=== PATIENT | male | born 1995 | race Caucasian/White ===

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

== ENCOUNTER → 2017-06-27 14:24 | Emergency (ER) | payer SELFPAY ==
[~2017-06-27 14:24] MED LIST: PPD test dose* 5 TU/0.1 ML TEST (*USE PPD ORDER SET*) ONE
== END | disposition home or self-care (01) ==
LOC: OHCORT 14:24
DX: Z11.1 Encounter for screening for respiratory tuberculosis (principal)

== ENCOUNTER 2017-07-16 11:31 | Emergency (ER) | payer OTHER ==
[2017-07-16 13:06] VITALS: BP 134/81
--- NOTE | 2017-07-16 13:15 | UC ---
Throat Pain/Nasal Ka[place] HPI - HPI Summary HPI Summary: started with a sore thraot, which has gone aay, now has fever and [id number] right frontal sinus pressure. tachycardic as well. - History of Current Complaint Chief Complaint: UCGeneralIllness Stated Complaint: SINUS Time Seen by Provider: 07/16/17 13:07 Hx Obtained From: Patient Onset/Duration: Sudden Onset, Lasting Weeks Severity: Mild - Allergies/Home Medications Allergies/Adverse Reactions: Allergies Allergy/AdvReac Type Severity Reaction Status Date / Time Amoxicillin [From Augmentin] Allergy Hives Verified 07/16/17 13:01 Cefixime [From Suprax] Allergy Hives Verified 07/16/17 13:01 Clavulanic Acid Allergy Hives Verified 07/16/17 13:01 [From Augmentin] Sodium Benzoate [From Suprax] Allergy Hives Verified 07/16/17 13:01 PMH/Surg Hx/FS Hx/Imm Hx Previously Healthy: Yes - Surgical History Surgical History: Yes Surgery Procedure, Year, and Place: T&A - Family History Known Family History: Negative: Cardiac Disease, Hypertension - Social History Alcohol Use: Occasionally Substance Use Type: None Substance Use Comment - Amount & Last Used: last used 2 weeks ago Smoking Status (MU): Never Smoked Tobacco - Immunization History Most Recent Influenza Vaccination: NONE 2016 Review of Systems Constitutional: Fever, Fatigue Skin: Negative Eyes: Negative ENT: Sore Throat, Ear Ache, Sinus Congestion, Sinus Pain/Tenderness Respiratory: Negative Cardiovascular: Negative Gastrointestinal: Negative Genitourinary: Negative Motor: Negative Neurovascular: Negative Musculoskeletal: Negative Neurological: Negative Psychological: Negative Is Patient Immunocompromised?: No All Other Systems Reviewed And Are Negative: Yes Physical Exam Triage Information Reviewed: Yes Appearance: Well-Appearing, Well-Nourished, Pain Distress Vital Signs: Initial Vital Signs Temp 101.5 F 07/16/17 13:01 Pulse 117 07/16/17 13:01 Resp 18 07/16/17 13:01 BP 134/81 07/16/17 13:01 Pulse Ox 98 07/16/17 13:01 Vital Signs Reviewed: Yes Eye Exam: Normal ENT: Positive: Pharyngeal erythema, Nasal congestion, Nasal drainage, TM red Dental Exam: Normal Neck exam: Normal Neck: Positive: Supple, Nontender, No Lymphadenopathy Respiratory Exam: Normal Respiratory: Positive: Chest non-tender, Lungs clear, Normal breath sounds Cardiovascular Exam: Normal Cardiovascular: Positive: RRR, No Murmur, Pulses Normal Abdominal Exam: Normal Abdomen Description: Positive: Nontender, No Organomegaly, Soft Bowel Sounds: Positive: Present Musculoskeletal Exam: Normal Musculoskeletal: Positive: Strength Intact, ROM Intact, No Edema Neurological Exam: Normal Neurological: Positive: Alert Psychological Exam: Normal Skin Exam: Normal Throat Pain/Nasal Course/Dx - Course Course Of Treatment: hx obtained, exam performed ,meds reviewed, treated for sinusitis - Differential Dx/Diagnosis Differential Diagnosis/HQI/PQRI: Influenza, Laryngitis, Pharyngitis, Sinusitis, URI Provider Diagnoses: SInusitis Discharge - Discharge Plan Condition: Stable Disposition: HOME Prescriptions: Cephalexin CAP* [Keflex CAP*] 500 mg PO BID #14 cap Patient Education Materials: Sinusitis (ED) Additional Instructions: 1. take the medication as prescribed. 2. Tylenol or MOtrin for pain and fever 3. Increaese fluid intake and get plenty of rest. 4. Follow up with any worsening symtpoms
== END 2017-07-16 13:18 | disposition home or self-care (01) ==
LOC: UCCORT 11:31
DX: J32.9 Chronic sinusitis, unspecified (principal); R00.0 Tachycardia, unspecified; Z88.1 Allergy status to other antibiotic agents; Z88.8 Allergy status to other drugs, medicaments and biological substances
CPT/HCPCS: 99212; G0463